=== PATIENT | female | born 1995 | race Caucasian/White ===

== ENCOUNTER → 2020-10-21 | Outpatient (CLI) | payer MEDICAID ==
--- NOTE | 2020-10-21 17:25 | Diagnostic Imaging Report ---
INDICATION: survey. TECHNIQUE: Multiple real-time grayscale images were obtained over the gravid uterus. COMPARISON: None FINDINGS: A single live intrauterine fetus is seen measuring 38 weeks 0 days by composite measurements. Fetus is in cephalic presentation. Amniotic fluid is 13.2 cm. Placenta is posterior with no evidence of previa. heart rate is 152 bpm. Maternal adnexa could not be visualized due to advanced age. survey demonstrates normal-appearing kidneys and bladder and stomach. Normal-appearing intracranial structures were seen. Four-chamber heart view is unremarkable. Three-vessel cord and cord insertion appear unremarkable. Views of the spine show no overt abnormality. Biometrical measurements are as follows: Biparietal 9.30 cm, age 37 weeks 6 days. Head circumference 33.55 cm, age 38 weeks 3 days. Abdominal circumference 34.99 cm, age 39 weeks 0 days. Femur length 7.15 cm, age 36 weeks 5 days. Sonographic estimate age: 38 weeks 0 days. Sonographic estimated date of delivery: 11/04/2020. Estimated Weight: 3426 gm (+/- 500 gm). LMP percentile: 98%. heart rate: 152 beats per minute. number: 1 of 1. IMPRESSION: Single live intrauterine fetus measuring 38 weeks 0 days in size with no detectable abnormalities. Dictated by: Dictated on workstation # [id number]
== END ==
LOC: RAD 13:00
PROVIDERS: ATTEND Nurse Practitioner Family
DX: Z34.93 Encounter for supervision of normal pregnancy, unspecified, third trimester (principal); Z3A.38 38 weeks gestation of pregnancy
CPT/HCPCS: 76805

== ENCOUNTER 2020-11-10 05:32 | Outpatient (CLI) | payer MEDICAID ==
[~2020-11-10] VITALS: Ht 157.5 cm; Wt 83.2 kg
[2020-11-10] MEDS ORDERED: CITA20TA9 PO (12:13)
[2020-11-10] MEDS ORDERED: PREN-8 PO (12:13)
== END 2020-11-10 12:26 | disposition home or self-care (01) ==
LOC: PREOP 05:32
PROVIDERS: ATTEND Obstetrics & Gynecology
DX: Z01.818 Encounter for other preprocedural examination (principal)

== ENCOUNTER 2020-11-17 02:55 | Inpatient (IN) | payer MEDICAID ==
--- NOTE | 2020-11-16 21:29 | History & Physical-OB ---
OB - Chief Complaint & HPI Date/Time Date of Admission: Date of Admission: 11/17/2020 Date seen by a Provider: Nov 09, 2020 Time Seen by a Provider: 15:00 Chief Complaint/History OB-Reason for Admission/Chief: Section Hx : 3 Hx Para: 2 Expected Date of Delivery: Nov 22, 2020 Gestational Age in Weeks: 39 Gestational Age in Days: 2 Indication for : desires repeat Other reason for admission: Patient of Dr. ndiaye that presented for repeat CS she has history of CS x 2 first for distress, second repeat (9#3 and 9#10) she has had an uncomplicated to date she started care elsewhere and transferred care to Dr. ndiaye at 29 weeks Ashish will be peds Plan repeat CS at 39 weeks. risks of bleeding, infection, injury to bowel, bladder, ureter and baby. Risk of DVT/PE Has history of elevated BP with two previous pregnancies but BP this has been wnl History of depression treated with Celexa during both pregnancies. Admission Nurse Assessment Rev: Yes History of Labs B+/- VDRL NR HIV - HBsAg - Hep C - GBS - Allergies and Home Medications Allergies Coded Allergies: No Known Drug Allergies (Unverified , 11/10/20) Home Medications Citalopram Hydrobromide 20 Mg Tablet, 20 MG PO DAILY, (Reported) Vit W-Ca,Fe,FA(<1 mg) 1 Each Tablet, 1 EACH PO DAILY, (Reported) Patient Home Medication List Home Medication List Reviewed: Yes OB - History Hx of Present Ultrasounds: Normal mid trimester US Obstetrical Complications: None Medical Complications: None Information Induced Hypertension: No Maternal Gestational Diabetes: No Hemorrhage: No Obstetrical History Hx : 3 Hx Para: 2 Hx # Term Pregnancies: 0 Hx # Pregnancies: 0 Number of Living Children: 2 Hx Multiple Gestation: No Hx Ectopic : No Hx Stillbirth: No Hx Complication: No Hx Induced Hypertens: No Hx Maternal Gestational Diabet: No Hx Hemorrhage: No Delivery History Hx Dystocia: No Hx Forceps Assisted Delivery: No Hx Vacuum Extraction Assisted: No Hx Placenta Abnormality: No Hx Distress: Yes Hx Large For Gestational Age I: Yes Hx Small for Gestational Age I: No Hx Section: Yes Hx Vaginal Delivery Post C-Sec: No Hx Blood Disorders: No Adverse Rxn to Tranfusion: No Patient Past Medical History depression Social History/Family History Alcohol Use: Denies Use Recreational Drug Use: No Smoking Cessation: Never smoker Immunizations Hepatitis A: No Hepatitis B: Yes Tetanus Booster (TDap): Less than 5yrs Rubella: immune RPR/VDRL: Negative GBS Status: Negative HBsAG: Negative OB - Admission Exam Physical Exam Lungs: Clear Abdomen: Gravid Heart Rate: 140's OB - Assessment/Plan/Diagnosis Assessment Assessment: section Admission Dx Previous section Plan repeat section risk of bleeding, infection, injury to bowel, bladder and ureter. consent for section Prophylactic antibiotics and SCDs Admission Status: Inpatient Order (span 2 midnights) Reason for Inpatient Admission: section RYNE CARUSO DO Nov 16, 2020 21:29
[2020-11-17] VITALS (9 sets, daily range): BP systolic 108–132; BP diastolic 41–69
[~2020-11-17] VITALS: Ht 154.9 cm; Wt 83.8 kg
[~2020-11-17 02:55] MED LIST: CITA20TA9 PO; PREN-8 PO
[2020-11-17] MEDS ORDERED: METOCLOPRAMIDE INJ 10 MG/2 ML (REGLAN) IV ONE (06:15)
[2020-11-17] MEDS ORDERED: LACTATED RINGERS 1,000 ML IV PRN ×2 (06:15)
[2020-11-17] MEDS ORDERED: ceFAZolin 2 GM IV Premixed 50 ML IV ONE (06:15)
[2020-11-17] MEDS ORDERED: FAMOTIDINE 20MG/2ML IV (PEPCID) IV ONE (06:15)
[2020-11-17] MEDS ORDERED: CITRIC ACID/SOB CIT (BICITRA) 30 ML UDC PO ONE (06:15)
[2020-11-17 06:28] LABS: BASOPHILS % (AUTO) 0 % (0-10); EOSINOPHILS # (AUTO) 0.1 10^3/uL (0.0-0.3); EOSINOPHILS % (AUTO) 1 % (0-10); HEMATOCRIT 38 % (35-52); HEMOGLOBIN 12.6 g/dL (11.5-16.0); LYMPHOCYTES # (AUTO) 2.4 10^3/uL (1.0-4.0); LYMPHOCYTES % (AUTO) 24 % (12-44); MEAN CORPUSCULAR HEMOGLOBIN 31 pg (25-34); MEAN CORPUSCULAR HGB CONC 34 g/dL (32-36); MEAN CORPUSCULAR VOLUME 93 fL (80-99); MEAN PLATELET VOLUME 10.8 fL (9.0-12.2); MONOCYTES # (AUTO) 0.8 10^3/uL (0.0-1.0); MONOCYTES % (AUTO) 8 % (0-12); NEUTROPHILS # (AUTO) 6.7 10^3/uL (1.8-7.8); NEUTROPHILS % (AUTO) 67 % (42-75); PLATELET COUNT 216 10^3/uL (130-400); WHITE BLOOD COUNT 9.9 10^3/uL (4.3-11.0)
[2020-11-17] MEDS ORDERED: fentaNYL INJ 100 MCG/2 ML AMP ONE (07:13)
[2020-11-17] MEDS ORDERED: OXYTOCIN PRE-MIX DRIP 1,000 ML IV ONE (07:13)
--- NOTE | 2020-11-17 07:17 | Progress Note-Pre Operative ---
Pre-Operative Progress Note H&P Reviewed The H&P was reviewed, patient examined and no changes noted. Date Seen by Provider: Nov 17, 2020 Time Seen by Provider: 07:00 Date H&P Reviewed: Nov 16, 2020 Time H&P Reviewed: 23:00 Pre-Operative Diagnosis: previous section RYNE CARUSO DO Nov 17, 2020 07:17
[2020-11-17] MEDS ORDERED: BUPIVACAINE 0.25% 30 ML (SENSORCAINE) VIAL ONE (08:08)
--- NOTE | 2020-11-17 08:18 | Cesarean Section Operative ---
Procedure Procedure Note Pre-operative Diagnosis: Johanna Pond is a 25 /Para 3 / 2, Gestational Age 39 + weeks with history of previous section Post-operative Diagnosis: same Procedure: Repeat low transverse section Physician: RYNE CARUSO Estimated blood loss: [] mL Disposition: stable Findings: Viable female infant, Apgars 5/5/8/9, weight pending, intact placenta, 3vc, normal appearing uterus, tubes, and ovaries. Loose nuchal body core delivered through. Indications:Johanna Pond is a 25 /Para 3 / 2,Gestational Age 39 + weeks with history of previous section Procedure Details: The patient was seen in pre-op and the procedure was discussed with the patient in full, including the risks, benefits, and alternatives. All questions were answered. The patient was taken to the operating room and a time out was perf ormed, verifying patient and procedure. After spinal anesthesia was placed by our anesthesia colleagues, the patient was placed in the dorsal supine with leftward tilt for uterine displacement.~ Her abdomen was then prepped and draped in the typical sterile fashion. A Pfannenstiel skin incision was made using a scalpel and carried down through the underlying fascia. The fascia was incised in the midline and tented up using Cass clamps. On both the inferior and superior fascia side the rectus muscle was dissected off bluntly and sharply using Monzon scissors. The peritoneum was identified and entered bluntly in the midline. This was then stretched laterally using manual strength. After entering the abdominal cavity and confirming lack of intraperitoneal adhesions, a large Juan retractor was placed and the lower uterine segment was visualized. A scalpel was utilized to make a low transverse uterine incision. Amniotomy was performed with an Allis clamp with return of clear fluid. The hand presented through the incision and was reduced to deliver the head with assistance of the silastic suction. the baby was floating and was face up and turned to vertex for delivery. I used the silastic suction to assist in delivery of the large head. The 's head was grasped and brought to the level of the incision. Fundal pressure was applied and was delivered without difficulty. Mouth and nares were suctioned with bulb suction. After the umbilical cord was clamped and cut, the infant was handed off to the pediatric staff. A sample of cord blood was then obtained. The placenta was delivered intact via uterine massage. The uterus was cleared of all clots and debris. The uterine incision was closed using 0 Vicryl in a running locked fashion. A second imbricated layer was placed using 0 Vicryl in a running fashion as well. The bilateral tubes and ovaries appeared normal. The abdominal gutters were cleared of all clots and debris. A final check of the uterine incision showed it to be hemostatic. The peritoneum was closed using 3-0 Vicryl in a running fashion. The fascia was closed with 0 PDS in a running fashion. The subcutaneous space was hemostatic, and irrigated. The subcutaneous space was closed with 0 Plain in several single interrupted stitches. The skin was then closed using 4-0 Monocryl in a running subcuticular fashion. The skin edges were reapproximated together and were hemostatic. A pressure dressing was applied. All sponge, lap and needle counts were correct at the end of the procedure per nursing. Vitals - Labs Vital Signs - I&O Vital Signs Date Time Temp Pulse Resp B/P (MAP) Pulse Ox O2 Delivery O2 Flow Rate FiO2 11/17/20 06:08 36.8 94 18 132/69 (90) 97 Room Air 11/17/20 06:08 36.8 94 18 97 Room Air Labs Laboratory Tests 11/17/20 06:15: White Blood Count 9.9, Red Blood Count 4.04, Hemoglobin 12.6, Hematocrit 38, Mean Corpuscular Volume 93, Mean Corpuscular Hemoglobin 31, Mean Corpuscular Hemoglobin Concent 34, Red Cell Distribution Width 13.6, Platelet Count 216, Mean Platelet Volume 10.8, Immature Granulocyte % (Auto) 0, Neutrophils (%) (Auto) 67, Lymphocytes (%) (Auto) 24, Monocytes (%) (Auto) 8, Eosinophils (%) (Auto) 1, Basophils (%) (Auto) 0, Neutrophils # (Auto) 6.7, Lymphocytes # (Auto) 2.4, Monocytes # (Auto) 0.8, Eosinophils # (Auto) 0.1, Basophils # (Auto) 0.0, Immature Granulocyte # (Auto) 0.0 RYNE CARUSO DO Nov 17, 2020 08:18
[2020-11-17] MEDS ORDERED: ACET-93 PO (08:23)
[2020-11-17] MEDS ORDERED: IBUP-844 PO (08:23)
[2020-11-17] MEDS ORDERED: OXC5T PO (08:23)
--- NOTE | 2020-11-17 08:24 | Discharge Inst-Women's Service ---
Discharge Inst-Women's Serv Depart Medication/Instructions New, Converted or Re-Newed RX: Transmitted to Pharmacy Consults/Follow Up Additional Follow Up: Yes (1-2 weeks for incision check (libby/Oanh) and 6 week pp (zelda)) Activity Activity: Activity as Tolerated Driving Instructions: No Driving for 1 Week NO SMOKING: NO SMOKING Nothing Inside Vagina: No Douching, No [place], No Tampons Diet Discharge Diet: No Restrictions Symptoms to Report to DrAngie: Bleeding Excessive, Pain Increased, Fever Over 101 Degrees F, Vaginal Bleeding Increase, Cramps in Feet or Legs, Vaginal Discharge Foul For Any Problems or Questions: Contact Your Physician Skin/Wound Care Infection Signs and Symptoms: Increased Redness, Foul Odor of Wound, Increased Drainage, Skin Itchy or Has a Rash, Increased Swelling, Temperature Above 101 F Operative Area Clean and Dry: Keep Incision Clean/Dry Stitches/[place]/Dermabond: Dermabond Bathing Instructions: RYNE Pacheco DO Nov 17, 2020 08:24
[2020-11-17] MEDS ORDERED: morphine INJ 4 MG/ML 1 ML (VIAL/SYRINGE) IV PRN (08:30)
[2020-11-17] MEDS ORDERED: NALOXONE 0.4 MG/ML 1 ML (NARCAN) VIAL IV PRN (08:30)
[2020-11-17] MEDS ORDERED: TETANUS,DIPTH,PERTUSS P/F (BOOSTRIX) 0.5 ML VIAL IM SCH (08:30)
[2020-11-17] MEDS ORDERED: MEASLES,MUMPS,RUBELLA 1 EA INJ SC SCH (08:30)
[2020-11-17] MEDS ORDERED: OXYTOCIN PRE-MIX DRIP 500 ML IV SCH (08:30)
[2020-11-17] MEDS: KETOROLAC 30 MG/ML VIAL IV SCH ×3 (10:32→22:20)
[2020-11-17] MEDS: ACETAMINOPHEN 500 MG TAB (TYLENOL) PO SCH (16:21)
[2020-11-17] MEDS: DOCUSATE SODIUM 100 MG (COLACE) CAP PO SCH ×2 (19:39→22:20)
[2020-11-17] MEDS: CATHETER FLUSH 10 ML SYR IV SCH ×2 (19:40→22:21)
[2020-11-18 00:25] VITALS: BP 110/55
[2020-11-18] MEDS: ACETAMINOPHEN 500 MG TAB (TYLENOL) PO SCH ×2 (00:27→09:37)
[2020-11-18 04:38] VITALS: BP 108/51
[2020-11-18] MEDS: KETOROLAC 30 MG/ML VIAL IV SCH (04:38)
[2020-11-18 06:35] LABS: BASOPHILS % (AUTO) 0 % (0-10); EOSINOPHILS # (AUTO) 0.1 10^3/uL (0.0-0.3); EOSINOPHILS % (AUTO) 1 % (0-10); HEMATOCRIT 35 % (35-52); HEMOGLOBIN 11.7 g/dL (11.5-16.0); LYMPHOCYTES # (AUTO) 1.9 10^3/uL (1.0-4.0); LYMPHOCYTES % (AUTO) 18 % (12-44); MEAN CORPUSCULAR HEMOGLOBIN 32 pg (25-34); MEAN CORPUSCULAR HGB CONC 33 g/dL (32-36); MEAN CORPUSCULAR VOLUME 95 fL (80-99); MEAN PLATELET VOLUME 11.4 fL (9.0-12.2); MONOCYTES # (AUTO) 0.8 10^3/uL (0.0-1.0); MONOCYTES % (AUTO) 8 % (0-12); NEUTROPHILS # (AUTO) 7.7 10^3/uL (1.8-7.8); NEUTROPHILS % (AUTO) 73 % (42-75); PLATELET COUNT 176 10^3/uL (130-400); WHITE BLOOD COUNT 10.5 10^3/uL (4.3-11.0)
--- NOTE | 2020-11-18 09:28 | Postpartum Progress Note ---
Note Note Day # 1 Subjective: Patient is without complaints. Ambulating, voiding. Tolerating a regular diet without nausea or vomiting. Normal lochia. Pain is well controlled with oral pain medications. Objective: Physical Exam: General - Alert and oriented, no apparent distress Abdomen - Soft, appropriately tender to palpation, non-distended, fundus firm at umbilicus Extremities - no edema, negative Lilly's bilaterally Assessment: Post- day # 1, status post section. Recovering well, hemodynamically stable Acute blood loss anemia Plan: Routine care. Encourage breast feeding. Encourage ambulation. Ferrous sulfate supplementation. Plan for discharge today RTC in 1wk for incision check Vitals - Labs Vital Signs - I&O Vital Signs Date Time Temp Pulse Resp B/P (MAP) Pulse Ox O2 Delivery O2 Flow Rate FiO2 11/18/20 04:38 36.5 60 18 108/51 (70) 98 Room Air 11/18/20 00:25 36.1 71 18 110/55 (73) 96 Room Air 11/17/20 20:08 36.2 76 18 121/55 (77) 98 Room Air 11/17/20 17:05 36.2 67 18 110/55 (73) Room Air 11/17/20 13:13 36.5 59 18 108/59 (75) Room Air 11/17/20 10:30 36.3 89 18 112/62 (79) 98 Room Air I & O 11/18/20 07:00 Intake Total 1350 ml Output Total 750 ml Balance 600 ml Labs Laboratory Tests 11/18/20 05:21: White Blood Count 10.5, Red Blood Count 3.69L, Hemoglobin 11.7, Hematocrit 35, Mean Corpuscular Volume 95, Mean Corpuscular Hemoglobin 32, Mean Corpuscular Hemoglobin Concent 33, Red Cell Distribution Width 13.9, Platelet Count 176, Mean Platelet Volume 11.4, Immature Granulocyte % (Auto) 1, Neutrophils (%) (Auto) 73, Lymphocytes (%) (Auto) 18, Monocytes (%) (Auto) 8, Eosinophils (%) (Auto) 1, Basophils (%) (Auto) 0, Neutrophils # (Auto) 7.7, Lymphocytes # (Auto) 1.9, Monocytes # (Auto) 0.8, Eosinophils # (Auto) 0.1, Basophils # (Auto) 0.0, Immature Granulocyte # (Auto) 0.1 MANDO CORLEY APRN Nov 18, 2020 09:28
[2020-11-18 09:30] VITALS: BP 116/74
[2020-11-18] MEDS: DOCUSATE SODIUM 100 MG (COLACE) CAP PO SCH (09:36)
[2020-11-18] MEDS ORDERED: IBUPROFEN 600 MG (MOTRIN) TAB PO SCH (12:00)
[2020-11-18 13:45] VITALS: BP 116/74
== END 2020-11-18 13:45 | disposition home or self-care (01) | DRG 787 ==
LOC: LDRP 06:01
PROVIDERS: ADMIT Obstetrics & Gynecology; ATTEND Obstetrics & Gynecology
PROC: 10D00Z1 Extraction of Products of Conception, Low, Open Approach (ICD-10-PCS; principal; 2020-11-17 07:26)
DX: O34.211 Maternal care for low transverse scar from previous cesarean delivery (principal); D62 Acute posthemorrhagic anemia; O90.81 Anemia of the puerperium; O69.81X0 Labor and delivery complicated by cord around neck, without compression, not applicable or unspecified; O99.344 Other mental disorders complicating childbirth; F32.9 Major depressive disorder, single episode, unspecified; Z3A.39 39 weeks gestation of pregnancy; Z37.0 Single live birth
CPT/HCPCS: 36415; 85025; 86850; 86900; 86901; 94664

== ENCOUNTER 2020-11-22 22:03 | Emergency (ER) | payer MEDICAID ==
[~2020-11-22 22:03] MED LIST changes: +ACET-93 PO; +IBUP-844 PO; +OXC5T PO
[2020-11-22 23:37] LABS: ALBUMIN 3.2 GM/DL (3.2-4.5); CHLORIDE 106 MMOL/L (98-107); POTASSIUM 4.2 MMOL/L (3.6-5.0); SODIUM 143 MMOL/L (135-145)
[2020-11-22 23:39] LABS: CALCIUM 8.9 MG/DL (8.5-10.1)
[2020-11-22 23:40] LABS: GLUCOSE 84 MG/DL (70-105)
[2020-11-22 23:41] LABS: CARBON DIOXIDE 25 MMOL/L (21-32)
[2020-11-22 23:42] LABS: BILIRUBIN,TOTAL 0.2 MG/DL (0.1-1.0)
[2020-11-22 23:43] LABS: ALKALINE PHOSPHATASE 109 U/L (40-136)
[2020-11-22 23:44] LABS: CREATININE SERUM 0.68 MG/DL (0.60-1.30); GFR ESTIMATED 107
[2020-11-22 23:45] LABS: BUN/CREATININE RATIO 12
[2020-11-22 23:46] LABS: ALANINE AMINOTRANSFERASE 29 U/L (0-55); FIBRIN DEGRADATION PRODUCTS 5.58 UG/ML (0.00-0.49); INR 0.9 (0.8-1.4); PROTHROMBIN TIME PATIENT 12.5 SEC (12.2-14.7); URIC ACID 6.7 MG/DL (2.6-7.2)
[2020-11-22 23:47] LABS: MAGNESIUM 1.9 MG/DL (1.6-2.4)
--- NOTE | 2020-11-22 23:48 | ED Chest Pain ---
General Chief Complaint: (<6 weeks) Stated Complaint: 5 DAYS / CHILLS / SOB / LUCERO Source: patient Exam Limitations: no limitations History of Present Illness Date Seen by Provider: Nov 22, 2020 Time Seen by Provider: 23:00 Initial Comments 25-year-old female G3, P3 that is 5 days from a that was planned coming in due to moderate to severe constant sharp substernal chest pain that is been going on for a couple days now with now some shortness of breath associated with it. Never had symptoms like this before. Otherwise pretty healthy. Has had high blood pressure with previous pregnancies but none with this . She is having normal abdominal pain as expected from her C- section and having normal bleeding since the without any discharge. No fever, cough, diarrhea, vomiting, or any other concerns. She states she does have a little bit of a rash from taking the opioid pain medication for the C- section which is not unusual for her. She denies any previous history of blood clots in her legs or lungs. No family history of early cardiac . Allergies and Home Medications Allergies Coded Allergies: No Known Drug Allergies (Unverified , 11/10/20) Home Medications Acetaminophen 500 Mg Tablet, 1,000 MG PO Q8HR Prescribed by: RYNE CARUSO on 11/17/20822 Citalopram Hydrobromide 20 Mg Tablet, 20 MG PO DAILY, (Reported) Ibuprofen 600 Mg Tablet, 600 MG PO Q6HR Prescribed by: YRNE CARUSO on 11/17/20822 Oxycodone Hcl 5 Mg Tab, 5 MG PO Q4HR PRN for PAIN-SEE DOSE INSTRUCTIONS Prescribed by: RYNE CARUSO on 11/17/20822 Vit W-Ca,Fe,FA(<1 mg) 1 Each Tablet, 1 EACH PO DAILY, (Reported) Patient Home Medication List Home Medication List Reviewed: Yes Review of Systems Review of Systems Constitutional: chills; No fever EENTM: No Blurred Vision Respiratory: Denies Cough; Shortness of Air Cardiovascular: Chest Pain Gastrointestinal: Abdominal Pain; Denies Diarrhea, Denies Nausea, Denies Vomiting Genitourinary: Denies Burning, Denies Frequency Musculoskeletal: No back pain, No joint pain Skin: rash Psychiatric/Neurological: Denies Anxiety, Denies Depressed Endocrine: No Symptoms Reported Hematologic/Lymphatic: No Symptoms Reported All Other Systems Reviewed Negative Unless Noted: Yes Past Aklqldq-Xiukxc-Dofwdj Hx Patient Social History Tobacco Use?: No Immunizations Up To Date Tetanus Booster (TDap): Less than 5yrs Seasonal Allergies Seasonal Allergies: No Past Medical History Surgeries: Yes (c/s x2) Section, Tonsillectomy Respiratory: No Cardiac: No Neurological: No Genitourinary: No Gastrointestinal: No Musculoskeletal: No Endocrine: No HEENT: No Cancer: No Psychosocial: No Integumentary: No Blood Disorders: No Adverse Reaction/Blood Tranf: No Physical Exam Vital Signs Capillary Refill : Height, Weight, BMI Height: '" Weight: lbs. oz. kg; 34.92 BMI Method: General Appearance: No Apparent Distress, WD/WN HEENT: PERRL/EOMI, Normal ENT Inspection, Pharynx Normal Neck: Full Range of Motion, Normal Inspection, Non Tender, Supple Respiratory: Chest Non Tender, Lungs Clear, Normal Breath Sounds, No Accessory Muscle Use, No Respiratory Distress Cardiovascular: Regular Rate, Rhythm, No Edema, No JVD, No Murmur, Normal Peripheral Pulses Gastrointestinal: Normal Bowel Sounds, Non Tender, Soft; No Distended, No Guarding; Other (Mild but appropriate abdominal tenderness near her surgical wound which appears clean, dry, intact without any signs of infection) Neurologic/Psychiatric: Alert, No Motor/Sensory Deficits, Normal Mood/Affect Skin: Normal Color, Warm/Dry, Other (Mild urticaria on her chest) Lymphatic: No Adenopathy Progress/Results/Core Measures Results/Orders Lab Results Laboratory Tests Test 11/22/20 23:16 11/22/20 23:28 Range/Units Prothrombin Time 12.5 12.2-14.7 SEC INR Comment 0.9 0.8-1.4 Activated Partial Thromboplast Time 27 24-35 SEC Fibrinogen 376 221-496 MG/DL D-Dimer 5.58 H 0.00-0.49 UG/ML Sodium Level 143 135-145 MMOL/L Potassium Level 4.2 3.6-5.0 MMOL/L Chloride Level 106 98-107 MMOL/L Carbon Dioxide Level 25 21-32 MMOL/L Anion Gap 12 5-14 MMOL/L Blood Urea Nitrogen 8 7-18 MG/DL Creatinine 0.68 0.60-1.30 MG/DL Estimat Glomerular Filtration Rate 107 BUN/Creatinine Ratio 12 Glucose Level 84 70-105 MG/DL Uric Acid 6.7 2.6-7.2 MG/DL Calcium Level 8.9 8.5-10.1 MG/DL Corrected Calcium 9.5 8.5-10.1 MG/DL Magnesium Level 1.9 1.6-2.4 MG/DL Total Bilirubin 0.2 0.1-1.0 MG/DL Aspartate Amino Transf (AST/SGOT) 24 5-34 U/L Alanine Aminotransferase (ALT/SGPT) 29 0-55 U/L Alkaline Phosphatase 109 40-136 U/L Lactate Dehydrogenase 285 H 125-220 U/L Troponin I < 0.028 <0.028 NG/ML B-Type Natriuretic Peptide 174.1 H <100.0 PG/ML Total Protein 6.0 L 6.4-8.2 GM/DL Albumin 3.2 3.2-4.5 GM/DL SARS-CoV-2 RNA (RT-PCR) Not Detected Not Detecte My Orders Orders - WON GONG MD Uric Acid (11/22/20 23:12) Vital Signs: Special (Order) UD (11/22/20 23:12) Comprehensive Metabolic Panel (11/22/20 23:12) Magnesium (11/22/20 23:12) Protime With Inr (11/22/20 23:12) Fibrinogen (11/22/20 23:12) Partial Thromboplastin Time (11/22/20 23:12) Ed Iv/Invasive Line Start (11/22/20 23:12) Abo Rh Type (11/22/20 23:12) Ekg Tracing (11/22/20 23:12) O2 (11/22/20 23:12) Monitor-Rhythm Ecg Trace Only (11/22/20 23:12) BNP (11/22/20 23:12) Fibrin Degradation Products (11/22/20 23:12) Troponin I (11/22/20 23:12) Covid 19 Inhouse Test (11/22/20 23:12) LDH (11/22/20 23:12) Ct Angio Chest W (11/23/20 00:21) Progress Progress Note : Progress Note 25-year-old female with above history coming in due to chest pain and shortness of breath in the setting of being 5 days . ABCs were intact and vitals were stable on presentation. She is mildly bradycardic however she is young. EKG with sinus bradycardia, narrow QRS, normal axis, no significant ST changes or T wave inversions. No signs of right heart strain on the EKG. Differential for a woman with chest pain and shortness of breath includes pulmonary embolism, peripartum cardiomyopathy, Covid, or some other etiology. She has no real abdominal tenderness other than expected and I have a low suspicion for endometritis. She has a normal amount of vaginal bleeding and does not seem to be hemorrhaging . Her blood pressure is slightly elevated which is unusual for her so preeclampsia is on the differential given she is still in the window. However, it is not high enough that I would begin treatment at this time. We will obtain basic labs as well as LFTs, coagulation studies, troponin, BNP, and D-dimer to further stratify her for a differential. BNP just slightly elevated above normal which is nonspecific, troponin negative, coagulation studies including fibrinogen normal, LFTs normal. Covid test is negative. D-dimer elevated and a CTA of her chest ordered to assess for pulmonary embolism versus pulmonary edema. This was negative. On reassessment she was smiling, appeared significantly better, and I believe is stable to go home with outpatient follow-up. I do recommend that she follows up with her OB by calling tomorrow. Departure Impression Primary Impression: Shortness of breath Additional Impression: care following delivery Disposition: 01 HOME, SELF-CARE Condition: Stable Departure-Patient Inst. Decision time for Depature: 02:15 Referrals: RYNE CARUSO DO (PCP/Family) Primary Care Physician Patient Instructions: Shortness of Breath, Adult ED Add. Discharge Instructions: You were seen in the emergency department because you are feeling short of breath. Your labs do not appear like anything is going on with your heart. We did a CT of your chest which does not show any blood clot, pneumonia, or any other concerns. You do not have coronavirus at this time. Please call your OB in the morning for follow-up if you are still symptomatic. If you begin feeling more short of breath, chest pain, or have any other concerns and please come back to the emergency department. All discharge instructions reviewed with patient and/or family. Voiced understanding. WON GONG MD Nov 22, 2020 23:48
[2020-11-23 02:23] VITALS: BP 136/77
--- NOTE | 2020-11-23 06:25 | Diagnostic Imaging Report ---
EXAMINATION: CT angiography of the chest. TECHNIQUE: Contrast enhanced thin section helical images were obtained through the chest with intravenous contrast timed for the optimal opacification of the arterial structures per CTA protocol. Post-processing, reconstructions and interpretation of angiographic images of the vessels was performed. 3D MIP reconstructions were performed and reviewed. All CT scans use one or more of the following dose optimizing techniques: automated exposure control, MA and/or KvP adjustment based on a patient size and exam type, or iterative reconstruction. HISTORY: Shortness of breath, postoperative COMPARISON: None available. FINDINGS: Vascular: No filling defects within the pulmonary arteries. Thoracic aorta is normal in caliber. Thyroid: The thyroid is normal. Mediastinum: Heart size is normal without significant pericardial effusion. No suspicious lymphadenopathy. Lungs and airways: The lungs are clear without consolidation, pleural effusion, or pneumothorax. There is mild atelectasis in the lung bases. The airways are normal. Upper abdomen: The subphrenic structures are normal. Musculoskeletal: No suspicious osseous lesion or compression fracture. IMPRESSION: 1. No findings of pulmonary embolus or other acute abnormality in the chest. Dictated by: Dictated on workstation # [id number]
== END 2020-11-23 02:24 | disposition home or self-care (01) ==
LOC: EDUNIT# 22:03 → ER 22:04
DX: R06.02 Shortness of breath (principal); Z39.2 Encounter for routine postpartum follow-up; Z20.822 Contact with and (suspected) exposure to COVID-19
CPT/HCPCS: 36415; 71275; 80053; 83615; 83735; 83880; 84484; 84550; 85379; 85384; 85610; 85730; 86900; 86901; 87636; 93005; 93041